=== PATIENT | female | born 1975 | race Two or more races ===

== ENCOUNTER 2017-02-03 20:03 | Emergency (ER) | payer BC, OTHER ==
[~2017-02-03] VITALS: Ht 157.5 cm; Wt 56.7 kg
[2017-02-03] MEDS ORDERED: ESTR2TAB5 PO (20:42)
[2017-02-03] MEDS ORDERED: PROGESTERONE IM (20:42)
[2017-02-03 21:20] LABS: BASOPHILS % (AUTO) 0.8 % (0.0-2.0); EOSINOPHILS % (AUTO) 1.6 % (0.0-7.0); HEMATOCRIT 40.1 % (37-47); HEMOGLOBIN 13.9 G/DL (12.0-16.0); LYMPHOCYTES % (AUTO) 18.4 % (20.5-51.5); MEAN CORPUSCULAR HGB CONC 35 g/dL (32.0-37.0); MEAN CORPUSCULAR VOLUME 89.4 FL (81.0-99.0); NEUTROPHILS % (AUTO) 73.2 % (38.5-71.5); PLATELET COUNT (AUTO) 227 K/UL (150-450); RED BLOOD CELL COUNT(AUTO) 4.48 MIL/UL (4.2-5.4); WHITE BLOOD COUNT (AUTO) 9.2 K/UL (4.0-11.2)
[2017-02-03 21:21] LABS: BASOPHILS # (AUTO) 0.1 K/uL (0.0-8.0); EOSINOPHILS # (AUTO) 0.1 K/uL (0.0-0.7); LYMPHOCYTES # (AUTO) 1.7 K/UL (0.8-4.8); MONOCYTES # (AUTO) 0.6 K/UL (0.1-1.30); NEUTROPHILS # (AUTO) 6.7 K/UL (1.8-8.9)
--- NOTE | 2017-02-03 21:25 | NUR ---
Radiology at bedside for US.
--- NOTE | 2017-02-03 21:48 | NUR ---
Radiology completed US, preliminary report to [facility].
--- NOTE | 2017-02-03 22:03 | NUR ---
Patient discharged to home in stable conditon. Written and verbal after care instructions given. Patient verbalizes understanding of instructions.
== END 2017-02-03 22:07 | disposition home or self-care (01) ==
LOC: ER 20:05
DX: O20.0 Threatened abortion (principal); Z3A.08 8 weeks gestation of pregnancy
CPT/HCPCS: 36415; 76856; 85025; 86850; 86900; 86901; A4663